=== PATIENT | male | born 1990 | race Caucasian/White ===

== ENCOUNTER 2018-01-17 16:58 | Emergency (ER) | payer OTHER ==
[~2018-01-17] VITALS: Ht 177.8 cm; Wt 81.7 kg
[~2018-01-17 16:58] MED LIST: LIDODERM700 MG TOP
[2018-01-17] MEDS ORDERED: SUBOXONE 8 MG-1 EAC1 SL (17:14)
== END 2018-01-17 19:20 | disposition home or self-care (01) ==
LOC: ED 16:58
DX: S60.221A Contusion of right hand, initial encounter (principal); W22.8XXA Striking against or struck by other objects, initial encounter; J45.909 Unspecified asthma, uncomplicated; F17.200 Nicotine dependence, unspecified, uncomplicated; Z79.899 Other long term (current) drug therapy
CPT/HCPCS: 73130; 99283